=== PATIENT | male | born 1945 | race African-American/Black ===

== ENCOUNTER 2020-08-05 15:00 | Outpatient (RCR) | payer MEDICARE, OTHER | END 2020-08-27 | disposition home or self-care (01) | LOC: WSPT | DX: M48.062 Spinal stenosis, lumbar region with neurogenic claudication (principal) ==

== ENCOUNTER 2020-12-26 14:00 | Outpatient (RCR) | payer OTHER | END 2021-01-26 | disposition home or self-care (01) | LOC: WSPT | DX: M96.1 Postlaminectomy syndrome, not elsewhere classified (principal) ==

== ENCOUNTER 2021-06-04 13:00 | Outpatient (RCR) | payer OTHER | END 2021-06-22 09:00 | disposition home or self-care (01) | LOC: WSPT 13:00 | DX: M96.1 Postlaminectomy syndrome, not elsewhere classified (principal) ==